=== PATIENT | female | born 1945 | race Caucasian/White ===

== ENCOUNTER 2020-06-25 11:17 | Inpatient (IN) | payer OTHER ==
[2020-06-25] MEDS ORDERED: SODIUM CHLORIDE 1,000 ML IV SCH (11:45)
[2020-06-25 12:26] LABS: CHOLESTEROL 237 mg/dL (50-200)
[2020-06-25 12:27] LABS: TRIGLYCERIDES 178 mg/dL (0-150)
[2020-06-25 12:28] LABS: LDL CHOLESTEROL (ONLY SJRH) 122 mg/dL (5-100)
[2020-06-25 12:29] LABS: HDL CHOLESTEROL 78 mg/dL (40-60)
[2020-06-25 13:15] LABS: INR 0.9 (0.83-1.09); PROTHROMBIN TIME (PATIENT) 10.9 SEC (9.7-13.0)
[2020-06-25 13:17] LABS: ACTIVATED PTT 33.2 SECONDS (25.2-36.5)
[2020-06-25 13:20] LABS: BASO % 0.8 % (0-2.0); EOS % 0.1 % (0-4.5); HEMATOCRIT 41.8 % (32.4-45.2); HEMOGLOBIN 14.3 GM/dL (10.7-15.3); LYMPH % 21.3 % (8-40); MCH 30.1 pg (25.7-33.7); MCHC 34.3 g/dl (32.0-36.0); MEAN CELL VOLUME 87.7 fl (80-96); MEAN PLT VOLUME 9.8 fl (7.5-11.1); MONO % 4.5 % (3.8-10.2); NEUT % 73.3 % (42.8-82.8); PLATELET COUNT 232 K/MM3 (134-434); RBC 4.77 M/mm3 (3.60-5.2); RDW 12.7 % (11.6-15.6); WHITE BLOOD COUNT 7.1 K/mm3 (4.0-10.0)
[2020-06-25 13:30] LABS: CHLORIDE 106 mmol/L (98-107); SODIUM 139 mmol/L (136-145)
[2020-06-25 13:34] LABS: ALBUMIN 4.3 g/dl (3.4-5.0); CALCIUM 9.2 mg/dL (8.5-10.1); EPI CELLS 6 /uL (0-25.1); HYALINE CASTS 0 /uL (0-3.1); URINE APPEARANCE CLEAR; URINE BACTERIA 80 /uL (0-1359); URINE BILIRUBIN NEGATIVE (NEGATIVE); URINE COLOR YELLOW; URINE GLUCOSE (UA) NEGATIVE (NEGATIVE); URINE KETONE NEGATIVE (NEGATIVE); URINE LEUK ESTERASE TRACE (NEGATIVE); URINE NITRITE NEGATIVE (NEGATIVE); URINE PROTEIN NEGATIVE (NEGATIVE); URINE RBC 3 /uL (0-23.9); URINE UROBILINOGEN 0.2 mg/dL (0.2-1.0); URINE WBC 14 /uL (0-25.8)
[2020-06-25 13:35] LABS: ANION GAP 8 MMOL/L (8-16); CO2 25 mmol/L (21-32); GLUCOSE,RANDOM 122 mg/dL (74-106)
[2020-06-25 13:37] LABS: CREATININE 0.7 mg/dL (0.55-1.3); SGOT/AST 37 U/L (15-37); SGPT/ALT 18 U/L (13-61)
[2020-06-25 13:38] LABS: BILIRUBIN,TOTAL 0.4 mg/dL (0.2-1); TOT PROT 7.7 g/dl (6.4-8.2)
[2020-06-25 13:39] LABS: ALK PHOS 111 U/L (45-117)
[2020-06-25] MEDS ORDERED: ASPIRIN 81 MG CHEWABLE TABLETS PO ONE (16:00)
[2020-06-25] MEDS ORDERED: ATORVASTATIN CA 80 MG TABLET (FP) PO ONE (16:01)
[2020-06-25] MEDS ORDERED: ASPIRIN 81 MG CHEWABLE TABLETS ONE (16:18)
[2020-06-25] MEDS ORDERED: ATORVASTATIN CA 80 MG TABLET (FP) ONE (16:18)
[2020-06-25] MEDS ORDERED: ACETAMINOPHEN 325 MG TABLET (FP) PO PRN (16:54)
[2020-06-25] MEDS: ATORVASTATIN CA 40 MG TABLET (FP) PO SCH (22:20)
[2020-06-25] MEDS ORDERED: MELATONIN 5 MG TABLETS PO ONE (22:41)
[2020-06-26 01:59] VITALS: BMI 26.9
[2020-06-26 06:58] LABS: BASO % 0.4 % (0-2.0); EOS % 0.9 % (0-4.5); HEMATOCRIT 34.8 % (32.4-45.2); HEMOGLOBIN 12.1 GM/dL (10.7-15.3); LYMPH % 35.8 % (8-40); MCH 30.8 pg (25.7-33.7); MCHC 34.9 g/dl (32.0-36.0); MEAN CELL VOLUME 88.1 fl (80-96); MEAN PLT VOLUME 9.4 fl (7.5-11.1); MONO % 7.4 % (3.8-10.2); NEUT % 55.5 % (42.8-82.8); PLATELET COUNT 196 K/MM3 (134-434); RBC 3.95 M/mm3 (3.60-5.2); RDW 12.9 % (11.6-15.6); WHITE BLOOD COUNT 6.8 K/mm3 (4.0-10.0)
[2020-06-26 07:30] LABS: CHLORIDE 111 mmol/L (98-107); SODIUM 142 mmol/L (136-145)
[2020-06-26 07:32] LABS: ANION GAP 6 MMOL/L (8-16); BLOOD UREA NITROGEN 16.7 mg/dL (7-18); CALCIUM 8.3 mg/dL (8.5-10.1); CO2 24 mmol/L (21-32); GLUCOSE,RANDOM 95 mg/dL (74-106)
[2020-06-26 07:35] LABS: CREATININE 0.7 mg/dL (0.55-1.3); PHOSPHOROUS 3.7 mg/dL (2.5-4.9); SGPT/ALT 11 U/L (13-61)
[2020-06-26 07:36] LABS: SGOT/AST 19 U/L (15-37)
[2020-06-26 07:37] LABS: BILIRUBIN,TOTAL < 0.1 mg/dL (0.2-1); TOT PROT 5.8 g/dl (6.4-8.2)
[2020-06-26 07:38] LABS: ALK PHOS 85 U/L (45-117)
[2020-06-26 07:50] LABS: ALBUMIN 3.2 g/dl (3.4-5.0)
[2020-06-26] MEDS ORDERED: PT OWN MED DRAWER 7, Y5N ONE ×2 (09:43→12:33)
[2020-06-26] MEDS: ASPIRIN COATED 81 MG TABLET.EC PO SCH (09:44)
[2020-06-26] MEDS: ENOXAPARIN NA (PORCINE) 40 MG/0.4 ML DISP.SYRIN SQ SCH (09:44)
[2020-06-26] MEDS: METHIMAZOLE 5 MG TABLET (FP) PO SCH (10:20)
[2020-06-26 12:08] LABS: PLATELET ESTIMATE NORMAL
[2020-06-26] MEDS: ATORVASTATIN CA 40 MG TABLET (FP) PO SCH (21:52)
[2020-06-27 07:20] LABS: BASO % 0.6 % (0-2.0); EOS % 0.1 % (0-4.5); HEMATOCRIT 39.3 % (32.4-45.2); HEMOGLOBIN 13.8 GM/dL (10.7-15.3); LYMPH % 35.1 % (8-40); MCH 30.6 pg (25.7-33.7); MCHC 35.2 g/dl (32.0-36.0); MEAN CELL VOLUME 86.9 fl (80-96); MEAN PLT VOLUME 8.8 fl (7.5-11.1); MONO % 5.6 % (3.8-10.2); NEUT % 58.6 % (42.8-82.8); PLATELET COUNT 232 K/MM3 (134-434); RBC 4.51 M/mm3 (3.60-5.2); RDW 12.8 % (11.6-15.6); WHITE BLOOD COUNT 7.9 K/mm3 (4.0-10.0)
[2020-06-27 07:41] LABS: CALCIUM 9.1 mg/dL (8.5-10.1)
[2020-06-27 07:42] LABS: ALBUMIN 3.9 g/dl (3.4-5.0); BLOOD UREA NITROGEN 16.1 mg/dL (7-18); MAGNESIUM 2.1 mg/dL (1.8-2.4)
[2020-06-27 07:45] LABS: CREATININE 0.7 mg/dL (0.55-1.3)
[2020-06-27 07:46] LABS: BILIRUBIN,TOTAL 0.4 mg/dL (0.2-1)
[2020-06-27 09:30] VITALS: TEMP 97.5
[2020-06-27] MEDS ORDERED: PT OWN MED DRAWER 7, Y5N ONE (09:42)
[2020-06-27] MEDS: ASPIRIN COATED 81 MG TABLET.EC PO SCH (10:08)
[2020-06-27] MEDS: METHIMAZOLE 5 MG TABLET (FP) PO SCH (10:08)
[2020-06-27] MEDS: ENOXAPARIN NA (PORCINE) 40 MG/0.4 ML DISP.SYRIN SQ SCH (10:09)
[2020-06-27] MEDS ORDERED: amLODIPine BESYLATE 10 MG TABLET (FP) PO SCH (11:00)
[2020-06-27 14:10] VITALS: BP 149/71; PULSE 86
== END 2020-06-27 15:14 | disposition home or self-care (01) | DRG 66 ==
LOC: JER 11:17 → JERBED 14:39 → J4S 20:21
PROVIDERS: ADMIT Internal Medicine; ATTEND Nurse Practitioner Family
DX: I63.9 Cerebral infarction, unspecified (principal); R29.702 NIHSS score 2; I10 Essential (primary) hypertension; E78.5 Hyperlipidemia, unspecified; R26.9 Unspecified abnormalities of gait and mobility; E05.90 Thyrotoxicosis, unspecified without thyrotoxic crisis or storm; I69.392 Facial weakness following cerebral infarction; E04.1 Nontoxic single thyroid nodule; I35.0 Nonrheumatic aortic (valve) stenosis; W18.30XA Fall on same level, unspecified, initial encounter; Y92.098 Other place in other non-institutional residence as the place of occurrence of the external cause
CPT/HCPCS: 36415; 70450-TC; 70551-TC; 72125-TC; 80053; 80061; 81003; 82550; 82553; 82607; 82962; 83036; 83721; 83735; 84100; 84439; 84443; 84484; 85025; 85610; 85730; 86780; 86850; 86900; 86901; 93005; 93010; 93306-TC; 93880-TC; 97116-GP; 97161-GP; 99285-25; C9803; U0003; U0005